=== PATIENT | female | born 1945 | race Caucasian/White ===

== ENCOUNTER → 2017-06-30 | Outpatient (CLI) | payer MEDICARE ==
[2017-06-30 13:44] LABS: ALBUMIN 3.6 GM/DL (3.4-5.0); BLOOD UREA NITROGEN 12 MG/DL (7-18); CALCIUM 8.6 MG/DL (8.5-10.1); CHLORIDE 104 MEQ/L (98-107); CHOLESTEROL 152 MG/DL (120-200); CREATININE 0.78 MG/DL (0.50-1.00); GLOMERULAR FILTRATION RATE 73 ML/MIN (>89); GLUCOSE,FASTING 87 MG/DL (74-99); SODIUM (NA) 139 MEQ/L (136-145)
[2017-06-30 13:46] LABS: ALT (GPT) 23 U/L (10-53)
[2017-06-30 13:55] LABS: ALKALINE PHOSPHATASE 70 U/L (45-117); ANION GAP 9 MEQ/L (5-15); AST (GOT) 17 U/L (15-37); BICARBONATE 26.5 MEQ/L (21.0-32.0); CHOLESTEROL/ HDL RATIO 3.07 RATIO; HDL CHOLESTEROL 49.4 MG/DL (40.0-60.0); LDL CHOLESTEROL 85 MG/DL (0-99); TOTAL BILIRUBIN ADULT 0.6 MG/DL (0.2-1.0); TOTAL PROTEIN 7.1 GM/DL (6.4-8.2); TRIGLYCERIDES 86 MG/DL (42-150)
== END ==
LOC: PLAB 08:23
DX: I10 Essential (primary) hypertension (principal); E78.5 Hyperlipidemia, unspecified; Z86.39 Personal history of other endocrine, nutritional and metabolic disease; Z13.29 Encounter for screening for other suspected endocrine disorder
CPT/HCPCS: 36415; 80053; 80061; 84443

== ENCOUNTER 2017-07-20 12:29 | Day surgery (SDC) | payer MEDICARE ==
[~2017-07-20 12:29] MED LIST: BONI3INJ IV; CALC500T21 OR; CHLO25TA24 PO; FISH1000 PO; MEVA40TA6 PO; OMEP20CA5 PO; POTA-243 PO
[2017-07-20 14:25] VITALS: BP 158/96; PULSE 70; RESP 16; TEMP 97.8; O2SAT 98
[2017-07-20] MEDS ORDERED: LIDOCAINE HCL 1% 20 ML VIAL ONE (14:33)
[2017-07-20 14:45] VITALS: BP 150/97; PULSE 72; RESP 16; O2SAT 98
--- NOTE | 2017-07-20 14:49 | RADRPT ---
EXAM DATE/TIME: 07/20/2017 12:55 [place] COMPARISON: No previous studies available for comparison. EXTERNAL COMPARISON: [facility]. Ultrasound Thyroid, Jul 13 2017. INDICATIONS : Left thyroid nodule. MEDICAL HISTORY : Breast cancer. Hyperlipidemia. SURGICAL HISTORY : Breast augmentation. Tonsillectomy. Tubal ligation. ENCOUNTER: Initial ACUITY: 2 weeks PAIN SCORE: 0/10 LOCATION: Left neck ORGAN: Left thyroid lobe SPECIMENS: Three fine needle aspirate(s) submitted for pathologic evaluation. DEVICE: 22 gauge needle The possibility does exist that the tissue obtained will be non-diagnostic. If the sample is non-genet gnostic a repeat biopsy or surgical biopsy may need to be performed. TECHNIQUE: 1. Ultrasound guidance for needle biopsy. 2. Needle biopsy. The risks, benefits and alternatives to the procedure were explained and verbal and written consent w as obtained. The site was prepped in sterile fashion. Full sterile technique was used, including ca p, mask, sterile gloves and gown and a large sterile sheet. Hand hygiene and 2% chlorhexidine and/or betadine/alcohol prep was utilized per protocol for cutaneous antisepsis. The skin and subcutaneous tissues were infiltrated with local anesthetic solution. Sterile gel and sterile probe cover were u tilized for ultrasound guidance. With the patient on the ultrasound table, images were obtained. A needle was advanced into the identified target and the number of specimens as above obtained and valenzuela bmitted for pathologic evaluation. The patient tolerated the procedure well and left the ultrasound suite in stable condition. CONCLUSION: Uncomplicated ultrasound guided needle biopsy. Low Castellanos MD on July 20, 2017 at 14:46 Board Certified Radiologist. This report was verified electronically.
== END 2017-07-20 14:45 | disposition home or self-care (01) ==
LOC: HRAD 12:29 → HRIP 12:33 → HRAD 14:45
PROVIDERS: ATTEND Internal Medicine
DX: E04.1 Nontoxic single thyroid nodule (principal); E78.5 Hyperlipidemia, unspecified; Z85.3 Personal history of malignant neoplasm of breast
CPT/HCPCS: 10022; 76942; 88172; 88173

== ENCOUNTER → 2017-09-25 | Outpatient (CLI) | payer MEDICARE ==
[2017-09-25 10:22] LABS: ALBUMIN 3.5 GM/DL (3.4-5.0); AST (GOT) 16 U/L (15-37); BICARBONATE 27.5 MEQ/L (21.0-32.0); BLOOD UREA NITROGEN 14 MG/DL (7-18); CALCIUM 8.7 MG/DL (8.5-10.1); CHLORIDE 108 MEQ/L (98-107); CHOLESTEROL 144 MG/DL (120-200); GLOMERULAR FILTRATION RATE 71 ML/MIN (>89); GLUCOSE,FASTING 93 MG/DL (74-99); SODIUM (NA) 142 MEQ/L (136-145)
[2017-09-25 10:34] LABS: ALKALINE PHOSPHATASE 75 U/L (45-117); ALT (GPT) 19 U/L (10-53); CHOLESTEROL/ HDL RATIO 3.03 RATIO; FREE T3 2.72 PG/ML (2.18-3.98); HDL CHOLESTEROL 47.4 MG/DL (40.0-60.0); LDL CHOLESTEROL 77 MG/DL (0-99); TOTAL BILIRUBIN ADULT 0.7 MG/DL (0.2-1.0); TOTAL PROTEIN 7.3 GM/DL (6.4-8.2); TRIGLYCERIDES 97 MG/DL (42-150)
[2017-09-25 11:14] LABS: FREE T4 1.12 NG/DL (0.76-1.46)
== END ==
LOC: PLAB 08:24
PROVIDERS: ATTEND Internal Medicine
DX: E04.9 Nontoxic goiter, unspecified (principal); E78.5 Hyperlipidemia, unspecified
CPT/HCPCS: 36415; 80053; 80061; 84439; 84443; 84481